=== PATIENT | male | born 1970 | race Caucasian/White ===

== ENCOUNTER 2017-10-03 14:25 | Emergency (ER) | payer BC ==
--- NOTE | 2017-10-03 14:32 | EDM.PDOC ---
ED HPI GENERAL MEDICAL PROBLEM - General Chief Complaint: Skin Complaint Stated Complaint: Right LE/calf swelling Time Seen by Provider: 10/03/17 14:09 Source of Information: Reports: Patient, Family, RN, RN Notes Reviewed History Limitations: Reports: No Limitations - History of Present Illness INITIAL COMMENTS - FREE TEXT/NARRATIVE: Patient presents to the ED at [facility] with right lower calf/leg swelling. The patient noticed "red blotches" over the anterior right ortiz sometime last week. He states the swelling started earlier today. The patient states the area is painful when he walk a long time or by palpation of the swelling. He denies any fever or chills. No previous RLE problems. He does have issues with varicose veins. No pain with elevation. No issues with ambulation outside of the pain. No recent RLE surgeries. No recent trauma or injury. No vector bites. Onset: Gradual Right Lower Leg Pain Score (Numeric/FACES): 8 - Related Data Allergies Allergy/AdvReac Type Severity Reaction Status Date / Time Penicillins Allergy Rash Verified 10/03/17 14:48 Home Meds: Home Meds Clindamycin HCl 1 cap PO TID 10 Days #30 capsule 10/03/17 [Rx] ED ROS GENERAL - Review of Systems Review Of Systems: See Below Constitutional: Denies: Fever, Chills, Weakness Respiratory: Denies: Shortness of Breath, Cough Cardiovascular: Denies: Chest Pain, Palpitations GI/Abdominal: Denies: Abdominal Pain, Nausea, Vomiting Musculoskeletal: Reports: Leg Pain, Other (swelling of RLE/calf) Skin: Reports: Erythema, Change in Color Neurological: Denies: Dizziness, Headache, Numbness, Paresthesia, Tingling ED EXAM, SKIN/RASH Exam: See Below Exam Limited By: No Limitations General Appearance: Alert, No Apparent Distress Respiratory/Chest: No Respiratory Distress, Lungs Clear, Normal Breath Sounds Cardiovascular: Normal Peripheral Pulses, Regular Rate, Rhythm Peripheral Pulses: 2+: Posterior Tibial (L), Posterior Tibial (R), Dorsalis Pedis (L), Dorsalis Pedis (R) GI/Abdominal: Normal Bowel Sounds, Soft, Non-Tender Extremities: Pedal Edema, Leg Pain, Increased Warmth, Redness Neurological: Alert, Oriented Skin: Warm, Dry, Intact, Erythema, Increased Warmth Location, Skin: Lower Extremity, Right Characteristics: Erythematous Associated features: Swelling Course - Vital Signs Last Recorded V/S: Last Vital Signs Temp 36.6 C 10/03/17 14:15 Pulse 98 10/03/17 14:15 Resp 16 10/03/17 14:15 BP 142/102 H 10/03/17 15:08 Pulse Ox 96 10/03/17 14:15 - Orders/Labs/Meds Orders: Active Orders 24 hr Category Date Time Status CBC WITH AUTO DIFF [HEME] Stat Lab 10/03/17 14:41 Results SEDIMENTATION RATE AUTO [HEME] Stat Lab 10/03/17 14:41 Results Sodium Chloride 0.9% [Saline Flush] Med 10/03/17 14:33 Active 10 ml FLUSH ASDIRECTED PRN Peripheral IV Insertion Adult [OM.PC] Routine Oth 10/03/17 14:33 Ordered Medication Orders Sodium Chloride (Saline Flush) 10 ml FLUSH ASDIRECTED PRN PRN Reason: Keep Vein Open Labs: Laboratory Tests 10/03/17 10/03/17 10/03/17 Range/Units 14:41 14:41 14:41 WBC 8.1 (4.0-10.0) x10^3/uL RBC 5.04 (4.5-6.0) x10^6/uL Hgb 15.4 (14.0-18.0) g/dL Hct 46.6 (40.0-52.0) % MCV 92.5 (78.0-93.0) fL MCH 30.6 (26.0-32.0) pg MCHC 33.0 (32.0-36.0) g/dL RDW Coeff of Shaq 14.4 (10.0-15.0) % Plt Count 231 (130-400) x10^3/uL Neut % (Auto) 60.8 (50.0-80.0) % Lymph % (Auto) 19.1 L (25.0-50.0) % [place] % (Auto) 18.0 H (2.0-11.0) % Eos % (Auto) 1.7 (0.0-4.0) % Baso % (Auto) 0.4 (0.2-1.2) % D-Dimer, Quantitative 0.74 H (<=0.58) mg/LFEU Sodium 130 L (136-145) mmol/L Potassium 3.6 (3.5-5.1) mmol/L Chloride 99 (98-107) mmol/L Carbon Dioxide 23 (21-32) mmol/L Anion Gap 11.6 (10-20) mmol/L BUN 9 (7-18) mg/dL Creatinine 0.8 (0.70-1.30) mg/dL Est Cr Clr Drug Dosing 115.33 mL/min Estimated GFR (MDRD) > 60 Glucose 95 (74-106) mg/dL Lactic Acid (0.4-2.0) mmol/L Calcium 8.8 (8.5-10.1) mg/dL Corrected Calcium 9.20 (8.5-10.1) mg/dL Total Bilirubin 0.5 (0.2-1.0) mg/dL AST 68 H (15-37) U/L ALT 137 H (16-63) U/L Alkaline Phosphatase 99 (46-116) U/L C-Reactive Protein 7.7 H (<=0.9) mg/dL Total Protein 7.8 (6.4-8.2) g/dL Albumin 3.5 (3.4-5.0) g/dL Globulin 4.3 Albumin/Globulin Ratio 0.81 05/24/18 Range/Units 14:41 WBC (4.0-10.0) x10^3/uL RBC (4.5-6.0) x10^6/uL Hgb (14.0-18.0) g/dL Hct (40.0-52.0) % MCV (78.0-93.0) fL MCH (26.0-32.0) pg MCHC (32.0-36.0) g/dL RDW Coeff of Shaq (10.0-15.0) % Plt Count (130-400) x10^3/uL Neut % (Auto) (50.0-80.0) % Lymph % (Auto) (25.0-50.0) % [place] % (Auto) (2.0-11.0) % Eos % (Auto) (0.0-4.0) % Baso % (Auto) (0.2-1.2) % D-Dimer, Quantitative (<=0.58) mg/LFEU Sodium (136-145) mmol/L Potassium (3.5-5.1) mmol/L Chloride (98-107) mmol/L Carbon Dioxide (21-32) mmol/L Anion Gap (10-20) mmol/L BUN (7-18) mg/dL Creatinine (0.70-1.30) mg/dL Est Cr Clr Drug Dosing mL/min Estimated GFR (MDRD) Glucose (74-106) mg/dL Lactic Acid 0.7 (0.4-2.0) mmol/L Calcium (8.5-10.1) mg/dL Corrected Calcium (8.5-10.1) mg/dL Total Bilirubin (0.2-1.0) mg/dL AST (15-37) U/L ALT (16-63) U/L Alkaline Phosphatase (46-116) U/L C-Reactive Protein (<=0.9) mg/dL Total Protein (6.4-8.2) g/dL Albumin (3.4-5.0) g/dL Globulin Albumin/Globulin Ratio Meds: Medications Generic Name Dose Route Start Last Admin Trade Name Freq PRN Reason Stop Dose Admin Sodium Chloride 10 ml 10/03/17 14:33 Saline Flush FLUSH ASDIRECTED PRN Keep Vein Open Departure - Departure Time of Disposition: 15:17 Disposition: Home, Self-Care 01 Condition: Good Clinical Impression: Cellulitis of right lower extremity - Discharge Information Prescriptions: Clindamycin HCl 1 cap PO TID 10 Days #30 capsule Instructions: Cellulitis, Adult, Clindamycin capsules Referrals: PCP,None [Primary Care Provider] - Forms: ED Department Discharge Additional Instructions: 1. Stay well hydrated and rest 2. Take medication for the full coarse, even if symptoms are better 3. May take Advil as needed; avoid Tylenol 4. Use KACI wrap to help with swelling 5. STOP smoking 6. Establish care with a PCP to follow your blood pressures 7. Call with any questions/concerns - Problem List Review Problem List Initiated/Reviewed/Updated: Yes - My Orders Last 24 Hours: My Active Orders 10/03/17 14:33 Sodium Chloride 0.9% [Saline Flush] 10 ml FLUSH ASDIRECTED PRN Peripheral IV Insertion Adult [OM.PC] Routine 10/03/17 14:41 CBC WITH AUTO DIFF [HEME] Stat SEDIMENTATION RATE AUTO [HEME] Stat - Assessment/Plan Last 24 Hours: My Active Orders 10/03/17 14:33 Sodium Chloride 0.9% [Saline Flush] 10 ml FLUSH ASDIRECTED PRN Peripheral IV Insertion Adult [OM.PC] Routine 10/03/17 14:41 CBC WITH AUTO DIFF [HEME] Stat SEDIMENTATION RATE AUTO [HEME] Stat Assessment:: RLE Cellulitis Plan: Sepsis criteria not met. Patient will be started on oral Clindamycin due to PCN allergy. Rest, elevate and ice. Recommend follow up.
[2017-10-03] MEDS ORDERED: Sodium Chloride 0.9% 10 ML Syringe FLUSH PRN (14:33)
[2017-10-03 15:08] LABS: CHLORIDE,CL 99 mmol/L (98-107); SODIUM,NA 130 mmol/L (136-145)
== END 2017-10-03 15:35 | disposition home or self-care (01) ==
LOC: VM.ED 14:25
DX: L03.115 Cellulitis of right lower limb (principal); Z88.0 Allergy status to penicillin
CPT/HCPCS: 80053; 83605; 85025; 85379; 85652; 86140; 99283